=== PATIENT | male | born 1965 | race Caucasian/White ===

== ENCOUNTER 2018-01-19 12:49 | Observation (INO) ==
--- NOTE | 2018-01-19 13:07 | Emergency Department Note ---
ED Disposition Clinical Impression: Lumbar disc herniation Low back pain with sciatica Qualifiers: Chronicity: acute Back pain laterality: bilateral Sciatica laterality: sciatica of left side Qualified Code(s): M54.42 - Lumbago with sciatica, left side Disposition: Still a Patient Condition on Discharge: Fair Additional Instructions: Continue prednisone, 3 tablets a day for 2 more days, then 2 tablets a day for 3 days, then 1 tablet a day until prescription is gone. Additional instructions for BACK PAIN: Call Dr. Noland's office Monday for further instructions on appointment to see Dr. Menjivar. Return immediately if back pain becomes intolerable, or if fever, numbness or weakness of your legs, loss of control of your bowels or bladder. Additional instructions for CONTROLLED SUBSTANCES: You have been prescribed a medication that is a controlled substance. Controlled substances include pain medications known as opiates and sedative nerve medications known as benzodiazepines. Some common opiates include: Codeine (such as Tylenol #3) Hydrocodone (Vicodin, Lortab, Lorcet, [place]) Oxycodone (Percocet, Percodan, Oxycodone, Oxy IR) Some common benzodiazepines include: Diazepam (Valium) Lorazepam (Ativan) Alprazolam (Xanax) Clonazepam (Klonopin) Oxazepam (Serax) All of these controlled substances are highly addictive and frequently abused. Misuse can and frequently does lead to addiction as well as overdose and . Medication should be stored in a locked cabinet or other secure storage unit. Do not store the medication in a motor vehicle. Short term supplies, 3 days or less, are prescribed because of the highly addictive nature of the medication. Any of the controlled substance medication NOT taken should be disposed of properly and NOT SAVED. The recommended method of disposing of unused medications is: Place the medicines in a sealable plastic bag. If the medicine is a solid, crush it or add water to dissolve it. Add something undesirable (cat litter, coffee grounds, etc.) Dispose of sealed bag in household trash Do not flush or pour unused medicines down a sink or drain. Controlled substances should not be shared, given away or sold. Because of the addictive nature and frequent abuse, these medications are sometimes stolen. These medications should be kept in a safe place where they cannot be stolen. Do not keep them in your car or purse. Lost or stolen prescriptions for controlled substances WILL NOT BE REFILLED in this emergency department, regardless of whether a police report was filed. Prescriptions: Oxycodone HCl/Acetaminophen [Percocet 10-325 mg Tab] 1 tab PO Q6HP PRN #12 tab PRN Reason: Moderate To Severe Pain predniSONE [Prednisone 20mg Tab] 20 mg PO DAILY #10 tab Referrals: Leonel Pompa MD [Primary Care Provider] - - Critical Care Critical Care Time: No Attestation: On 01/19/18, the high probability of a clinically significant, sudden or life threatening deterioration of the following system(s) required my full and direct attention, intervention and personal management. The time I documented below is in addition to time spent performing reported procedures but includes the following listed in this critical care notation. Medical Decision Making - Dennys Inquiry Pt receiving controlled substance: Yes Dennys was queried for this patient: Yes Reference #:: [id number] Risks and benefits of using a controlled substance: were discussed with pt by me Comment: 1 rx for 20 lortab 7.5mg 04/24/17. Vital Signs: 01/19/18 12:51 01/19/18 13:23 01/19/18 14:16 Temperature 99.1 F Temperature Source Oral Pulse Rate [Left Radial] 74 78 72 Respiratory Rate 24 Blood Pressure [Right Arm] 154/91 140/77 138/71 Blood Pressure Mean [Right Arm] 112 98 93 Blood Pressure Source [Right Arm] Manual Cuff/ Auscultation Manual Cuff/ Auscultation Blood Pressure Position [Right Arm] Supine Sitting Sitting 02 Sat by Pulse Oximetry 98 99 98 Oxygen Delivery Method 01/19/18 15:30 Temperature Temperature Source Pulse Rate [Left Radial] 88 Respiratory Rate 24 Blood Pressure [Right Arm] 152/90 Blood Pressure Mean [Right Arm] 110 Blood Pressure Source [Right Arm] Blood Pressure Position [Right Arm] 02 Sat by Pulse Oximetry 98 Oxygen Delivery Method Room Air - Lab Data Lab Results 01/19/18 14:20: Urine Color Yellow, Urine Appearance Clear, Urine pH 7.0, Ur Specific [employer] 1.020, Urine Protein Negative, Urine Glucose (UA) Negative, Urine Ketones Negative, Urine Blood Negative, Urine Nitrate Negative, Urine Bilirubin Negative, Urine Urobilinogen 0.2, Ur Leukocyte Esterase Negative, Urine RBC Occasional, Urine WBC Occasional, Ur Squamous Epith Cells 3-5, Urine Bacteria Trace, Hyaline Casts 5-10, Urine Mucus 2+ Orders (Tests/Meds): ED MEDICATIONS Discontinued Medications Generic Name Dose Route Start Last Admin Trade Name Андрейq PRN Reason Stop Dose Admin Dexamethasone Sodium Phosphate 8 mg 01/19/18 13:17 01/19/18 13:55 Decadron 4mg/Ml 1ml Vial IV 01/19/18 13:18 8 mg ONCE ONE Administration Hydromorphone HCl 1 mg 01/19/18 13:17 01/19/18 13:25 Dilaudid 2mg/Ml Syringe IV 01/19/18 13:18 1 mg ONCE ONE Administration Hydromorphone HCl 1 mg 01/19/18 14:03 01/19/18 14:06 Dilaudid 2mg/Ml Syringe IV 01/19/18 14:04 1 mg ONCE ONE Administration Hydromorphone HCl 1 mg 01/19/18 15:28 01/19/18 15:30 Dilaudid 2mg/Ml Syringe IV 01/19/18 15:29 1 mg ONCE ONE Administration Ketorolac Tromethamine 60 mg 01/19/18 12:59 01/19/18 13:00 Toradol 60mg/2ml Vial IM 01/19/18 13:00 60 mg ONCE ONE Administration Ondansetron HCl 4 mg 01/19/18 14:01 01/19/18 14:02 Zofran 4mg/2ml Vial IV 01/19/18 14:02 4 mg ONCE ONE Administration - CT Data CT Scan: L-Spine Time Received: 14:[address] Reviewed: Yes: I have viewed the radiologist's interpretation Findings Narrative: IMPRESSION: 1. Suspect small left paracentral disc protrusion/herniation at L4-L5 with bulging disc and facet hypertrophic change and mild bilateral foraminal narrowing. 2. Degenerative disc disease with bulging disc and small right paracentral disc osteophyte complex at L5-S1 with bilateral foraminal narrowing. 3. Consider for further evaluation Dictated By: Keenan Stokes MD Signed By: <Electronically signed by Keenan Stokes MD in OV> 01/19/18 1430 - Physician Consults Time: 15:03 Reason -: Pt condition Comment/Response: Requests increasing prednisone to 60 mg per day for 2 more days, then 40 mg per day for 3 days, then 20 mg per day. He will try and arrange an appointment with Dr. Menjivar for epidural injection next week. Patient to call on Monday to their office. Analgesia. Additional Consult: Aletha Time: 15:32 Reason -: Admission Comment/Response: Agrees to admit the patient to the hospital. We discussed the patient's clinical information, including history, exam, laboratory and radiology results and ED course. Per hospital procedure, I will write temporary bridge inpatient orders on the patient. Specific orders requested by the admitting physician: Intravenous steroids and Toradol, Dilaudid. Consult Dr. Menjivar for inpatient evaluation. - Reevaluation(s) Time: 15:02 Reevaluation #1: Pain is 8/10. Patient appears comfortable. Discussed CT results diagnosis and treatment. Discussed disposition. Patient prefers to go home. Time: 15:26 Reevaluation #3: Patient unable to be discharged. Nurse attempted to get him up into a wheelchair and his pain once again became severe, moaning and restless. General Adult HPI - General Chief complaint: Back Pain/Injury Stated complaint: Pain Time Seen by Provider: 01/19/18 13:07 Mode of Arrival: EMS Limitations: No Limitations Description of Symptoms (Recalled from ER Triage Doc. by RN): to ed per squad with c/o lower back pain radiating down lt leg x 2 weeks getting worse seen by pcp yesterday given steroids with no relief. - History of Present Illness HPI narrative: Did some lifting and bowling 13 days ago and something pull in his back. The next day could not get out of bed. Has had severe low back pain across his lower back into his left hip and down his left leg all the way into the foot since then. Getting worse. Denies numbness. Denies loss of bowel or bladder control. Has been seeing a chiropractor for several days and getting adjustments on his left hip without improvement. Saw his primary care provider Monday 2 days ago and was prescribed steroids. Arrangements are being made for an MRI, but his states that she has been notified that provider does not expect that insurance will approve it. No history of significant back problems in the past. No history of disc problems. He had sciatica a few years ago. He has never had an MRI of his back. - Related Data Home Medications Medication Instructions Recorded Confirmed fluticasone 50 mcg/actuation nasal 50 mcg INTRANASAL ONCE 06/09/17 spray,suspension hydrochlorothiazide 25 mg tablet 25 mg PO ONCE tab 06/09/17 losartan 50 mg tablet 50 mg PO DAILY 30 Days #30 12/23/17 Cetirizine HCl [All Day Allergy] 10 mg PO ONCE 01/19/18 01/19/18 Ketotifen Fumarate [Zaditor] 1 drp OPHTHALMIC BID 01/19/18 01/19/18 Previous Rx's Medication Instructions Recorded [id number] 6.25 5 ml PO .Q6 PRN #240 ml 12/23/17 mg-15 mg-325 mg/15 mL oral liquid Oxycodone HCl/Acetaminophen 1 tab PO Q6HP PRN #12 tab 01/19/18 [Percocet 10-325 mg Tab] predniSONE [Prednisone 20mg 20 mg PO DAILY #10 tab 01/19/18 Tab] Allergies Allergy/AdvReac Type Severity Reaction Status Date / Time No Known Allergies Allergy Verified 12/23/17 12:08 [facility] History I have reviewed the patient's past medical history: Yes Medical History: Reports:: Hypertension Laterality Cases: Bilateral: Tonsillectomy Other Surgeries: Yes: Hernia Repair Comment: basal cell removed from nose - Social History Smoking Status: Current every day smoker Tobacco Type: cigarettes Alcohol Intake: current Alcohol Intake Frequency:: 3 or more drinks per day Substance Use Type: denies use - Psychiatric History Expresses thoughts of harming self/others: None Suicide Plan Description: No Plan Family Hx:: Heart Attack, Hypertension ROS Obtained: Yes Systems reviewed as appropriate & no additional complaints - Constitutional Constitutional: Denies fever(s) - Gastrointestinal Gastrointestingal: Denies: incontinent of stools - Genitourinary Male Genitourinary: Denies urinary incontinence - Musculoskeletal Musculoskeletal: Reports as per HPI, Reports back pain - Neurologic Neurologic: Denies numbness, Denies weakness Physical Exam - General General appearance: alert, in distress Comment: Appears to be in severe pain - Head Head exam: atraumatic, normocephalic - Eye Eye exam: Present: normal appearance, PERRL, EOMI - ENT ENT exam: Present: mucous membranes moist - Neck Neck exam: Present: normal inspection, full ROM - Chest Chest inspection: Present: normal inspection - Respiratory Respiratory exam: Absent: respiratory distress - Cardiovascular Cardiovascular exam: Present: regular rate - Abdominal Exam Abdominal exam: Present: soft - Extremities Exam Extremities exam: Present: normal inspection, full ROM - Neurological Exam Neurological exam: Present: alert, oriented X3. Absent: motor sensory deficit - Psychiatric Psychiatric exam: Present: normal affect - Skin Skin exam: Present: warm, dry
[2018-01-19 14:49] LABS: Microscopic, Urine URINE MICROSCOPIC (MICROSCOPIC)
[2018-01-19 14:51] LABS: Appearance,Urine CLEAR (Clear); Bilirubin,Urine Negative (Negative); Blood, Urine Negative (Negative); Color,Urine YELLOW (Yellow); Glucose,Urine (UA) Negative (Negative); Ketones,Urine Negative (Negative); Leukocyte Esterase,Urine Negative (Negative); Protein,Urine Negative (Negative); Urobilinogen,Urine 0.2 EU/dl (0.2)
[2018-01-19 15:00] LABS: Bacteria,Urine Trace /lpf; Mucus,Urine 2+ /lpf; RBC,Urine Occasional #/hpf (0-3); WBC,Urine Occasional #/hpf (0-3)
--- NOTE | 2018-01-19 16:09 | Pharmacy Consult Notes ---
[facility] Pharmacy VTE Monitoring - Patient Demographics Admission date: 01/19/18 Report Date: 01/19/18 Time: 16:09 Allergies/Adverse Reactions: Patient Allergies No Known Allergies Allergy (Verified 12/23/17 12:08) Height: 1.88 m Weight: 69.853 kg Patient Problems: Current Active Problems Lumbar disc herniation (Acute) Low back pain with sciatica (Acute) - VTE Risk Clinical Trial Participant: No - Prophylaxis VTE Prophylaxis Ordered?: Yes Types of VTE Prophylaxis: TEDS Knee High
--- NOTE | 2018-01-20 08:26 | History & Physical Report ---
*Admission Date: 01/19/18 *Chief complaint: Intractable back pain *History of present illness: 52-year-old white male, recently, 4 days ago, diagnosed with sciatica in the office, treated with steroids and NSAIDs, MRI pending, who had intractable, severe pain with the inability to walk with severe left leg pain and came to the emergency department in the early afternoon on the day of admission. Initially did well with some intravenous hydromorphone and was planning to be discharged but on the way out the door had increasingly severe intractable back pain was unable to walk out of the emergency department rooms. CT scan revealed evidence of L4/L5 disc herniation, consistent with his symptoms. He was admitted for further evaluation, pain management consultation and intravenous hydromorphone given his significant/intractable back pain and unresponsiveness to outpatient therapy. [facility] History Medical History: Reports:: Cancer, Hypertension Denies:: Diabetes Mellitus Type 1, Diabetes Mellitus Type 2, MRSA Other Medical History: Reports: Sinus Problems Laterality Cases: Bilateral: Tonsillectomy Other Surgeries: Yes: Hernia Repair Amputation: No Fractures: No - *Social History Educational Level: Completed High School Smoking Status: Former smoker Tobacco Type: cigarettes # Packs/Day (cigarettes): 1 Alcohol Intake: current Alcohol Intake Frequency:: 3 or more drinks per day Substance Use Type: denies use Occupational Status: employed Housing: house Household Members: spouse - Psychiatric History Expresses thoughts of harming self/others: None Suicide Plan Description: No Plan *Family Hx:: Unable to obtain, Heart Attack, Hypertension Review of Systems - Review of Systems Review of systems:: pertinent systems reviewed and negative unless documented below - Constitutional Denies anorexia, Denies body ache(s), Denies chills - Eyes Denies blurry vision - ENT Denies abnormal hearing, Denies bleeding gums - *Cardiovascular Denies chest pain, Denies excessive sweating, Denies shortness of breath - *Respiratory Denies change in phlegm color, Denies chest congestion - *Gastrointestinal Reports constipation, Denies abdominal pain, Denies belching, Denies change in bowel habits - *Genitourinary Reports difficulty urinating Comments: Difficulty starting urination stream - *Musculoskeletal Reports abnormal walking, Reports joint pain, Reports back pain, Reports limited joint movement - *Neurologic Denies numbness, Denies weakness Meds Home Medications Medication Instructions Recorded Confirmed Type losartan 50 mg tablet 50 mg PO DAILY 30 Days #30 12/23/17 01/19/18 History Diclofenac Sodium [Diclofenac 75mg 75 mg PO BID 01/19/18 01/19/18 History Tab] Ketotifen Fumarate [Zaditor] 1 drp OPHTHALMIC BID 01/19/18 01/19/18 History hydroCHLOROthiazide [HCTZ 25mg 25 mg PO DAILY 01/19/18 01/19/18 History tab] Allergies Allergy/AdvReac Type Severity Reaction Status Date / Time No Known Allergies Allergy Verified 12/23/17 12:08 Exam Vital signs and Labs for Last 24 Hours: Temp Pulse Resp BP Pulse Ox 98.6 F 63 18 128/76 100 01/20/18 07:50 01/20/18 07:50 01/20/18 07:50 01/20/18 07:50 01/20/18 08:00 Laboratory Results - last 24 hr 01/19/18 14:20: Urine Color Yellow, Urine Appearance Clear, Urine pH 7.0, Ur Specific [place] 1.020, Urine Protein Negative, Urine Glucose (UA) Negative, Urine Ketones Negative, Urine Blood Negative, Urine Nitrate Negative, Urine Bilirubin Negative, Urine Urobilinogen 0.2, Ur Leukocyte Esterase Negative, Urine RBC Occasional, Urine WBC Occasional, Ur Squamous Epith Cells 3-5, Urine Bacteria Trace, Hyaline Casts 5-10, Urine Mucus 2+ I & O for Last 24 hours: Intake & Output 01/17/18 01/18/18 01/19/18 01/20/18 11:59 11:59 11:59 11:59 Intake Total 600 / 600 Balance 600 / 600 Weight 154 lb Narrative: Patient's pleasant, talkative, appears older than his stated age. Oropharynx clear. ENT exam otherwise clear. Lungs have good air movement, some smoker's rhonchi. Heart rate regular. Abdomen soft Left leg has significant pain with straight leg raise at 30. Reflexes diminished in the left knee and ankle jerk. Significant disruption of strength with 3/5 with left hip flexion. Right side is unremarkable. No edema or clubbing. Good distal pulses. Cranial nerves are intact. No rashes noted. Assessment and Plan (1) Hypertension Current visit: Yes Status: Acute Category: Medical Code(s): I10 - Essential (primary) hypertension Blood pressure overnight has been acceptable. Continue angiotensin receptor derek. No change in plans at this point. Watch carefully given his pain and his opioid pain medicines. (2) Tobacco use disorder Current visit: Yes Status: Acute Category: Medical Code(s): F17.200 - Nicotine dependence, unspecified, uncomplicated Nicotine patch as needed if needed (3) Constipation Current visit: Yes Status: Acute Category: Medical Code(s): K59.00 - Constipation, unspecified Start senna and MiraLAX. Concerning for possible effects of disc disease. (4) Low back pain with sciatica Current visit: Yes Status: Acute Qualifiers: Chronicity: acute Back pain laterality: bilateral Sciatica laterality: sciatica of left side Qualified Code(s): M54.42 - Lumbago with sciatica, left side Category: Medical Code(s): M54.40 - Lumbago with sciatica, unspecified side Given failure of outpatient therapy, issues with urine stream initiation and constipation patient needs admission to hospital, he will need MRI scanning and needs pain management evaluation for possible epidural. Steroids and IV narcotics as noted (5) Lumbar disc herniation Current visit: Yes Status: Acute Category: Medical Code(s): M51.26 - Other intervertebral disc displacement, lumbar region
--- NOTE | 2018-01-21 08:45 | Progress Note ---
Internal Medicine - PN: Subj *Date: 01/21/18 *Time: 08:43 Interval history: Patient overall feels better, has decreased his utilization of intravenous Dilaudid. Has been able to get up and go to the bathroom. Continues to feel significantly weak on the left side. Occasionally with some severe pain. Exam Vital signs and Labs for Last 24 Hours: Temp Pulse Resp BP Pulse Ox 98.1 F 72 16 124/76 99 01/21/18 07:38 01/21/18 07:38 01/21/18 07:38 01/21/18 07:38 01/21/18 07:38 I & O for Last 24 hours: Intake & Output 01/18/18 01/19/18 01/20/18 01/21/18 11:59 11:59 11:59 11:59 Intake Total 600 / 600 1200 / 1200 Balance 600 / 600 1200 / 1200 Weight 154 lb Narrative: ENT exam clear, patient is pleasant and talkative. No evidence of tremors or orientation. Lungs with smoker's rhonchi, heart rate regular, abdomen soft, able to flex his knees well. He will remain slightly weak on the left side in regards to hip flexion. Straight leg raise significantly positive still at 45 on the left. Assessment and Plan (1) Hypertension Current visit: Yes Status: Acute Category: Medical Code(s): I10 - Essential (primary) hypertension (2) Tobacco use disorder Current visit: Yes Status: Acute Category: Medical Code(s): F17.200 - Nicotine dependence, unspecified, uncomplicated (3) Constipation Current visit: Yes Status: Acute Category: Medical Code(s): K59.00 - Constipation, unspecified (4) Low back pain with sciatica Current visit: Yes Status: Acute Qualifiers: Chronicity: acute Back pain laterality: bilateral Sciatica laterality: sciatica of left side Qualified Code(s): M54.42 - Lumbago with sciatica, left side Category: Medical Code(s): M54.40 - Lumbago with sciatica, unspecified side (5) Lumbar disc herniation Current visit: Yes Status: Acute Category: Medical Code(s): M51.26 - Other intervertebral disc displacement, lumbar region (6) Alcohol use Current visit: Yes Status: Acute Category: Social Hx Code(s): Z78.9 - Other specified health status Nursing reports patient drinks 6-10 beers nightly. I have discussed this with him. He states he has never had withdrawal symptoms. Has no shakiness. Will watch carefully. Otherwise plan remains the same for pain management service intervention tomorrow.
--- NOTE | 2018-01-21 09:37 | Discharge Summary ---
General - General Admission date:: 01/19/18 Discharge date: 01/21/18 HPI HPI: 52-year-old white male, recently, 4 days ago, diagnosed with sciatica in the office, treated with steroids and NSAIDs, MRI pending, who had intractable, severe pain with the inability to walk with severe left leg pain and came to the emergency department in the early afternoon on the day of admission. Initially did well with some intravenous hydromorphone and was planning to be discharged but on the way out the door had increasingly severe intractable back pain was unable to walk out of the emergency department rooms. CT scan revealed evidence of L4/L5 disc herniation, consistent with his symptoms. He was admitted for further evaluation, pain management consultation and intravenous hydromorphone given his significant/intractable back pain and unresponsiveness to outpatient therapy. Hospital Course Hospital Course: Patient was admitted and placed on intravenous Solu-Medrol and warfarin. Did well with this with good pain control while not moving, pain continue to be a problem over the next couple of days with any kind of movement or walking. Earlier this morning patient felt poorly but as he got up and walked around he felt improved and felt [facility]. Exam was noted on my note dated today. I contacted pain clinic. They will be able to work him in tomorrow for possible epidural injection. MRI scan will be later this week as we continue to work up the severe sciatic neuralgia. Objective Vital signs: Temp Pulse Resp BP Pulse Ox 98.1 F 72 16 124/76 99 01/21/18 07:38 01/21/18 07:38 01/21/18 07:38 01/21/18 07:38 01/21/18 07:38 Narrative: Please see exam from progress note earlier this morning DS: Diagnosis - Discharge Diagnosis (1) Hypertension Status: Chronic (2) Tobacco use disorder Status: Chronic (3) Constipation Status: Chronic (4) Low back pain with sciatica Status: Acute (5) Lumbar disc herniation Status: Acute (6) Alcohol use Status: Acute Discharge Plan - Patient Discharge Instructions ACTIVITY: Continue current activity DIET: continue same diet - Follow up Plan Follow up with: Petra Prater APRN [Advanced Practice Nurse] - 1 day Disposition: Home, Self-Prison Medications: Home Medications Medication Instructions Recorded Confirmed Type losartan 50 mg tablet 50 mg PO DAILY 30 Days #30 12/23/17 01/19/18 History Diclofenac Sodium [Diclofenac 75mg 75 mg PO BID 01/19/18 01/19/18 History Tab] Ketotifen Fumarate [Zaditor] 1 drp OPHTHALMIC BID 01/19/18 01/19/18 History hydroCHLOROthiazide [HCTZ 25mg 25 mg PO DAILY 01/19/18 01/19/18 History tab] Prescriptions/Medication Reconciliation: New predniSONE [Deltasone 20mg tablet] 20 mg PO BID 7 Days #14 tab Sennosides/Docusate Sodium [Senokot-S Tablet] 1 tab PO BIDP PRN #60 tab PRN Reason: Constipation Oxycodone HCl/Acetaminophen [Percocet 10-325 mg Tab] 1 tab PO Q6HP PRN # 12 tab PRN Reason: Moderate To Severe Pain Polyethylene Glycol 3350 [Miralax 17gm Packet] 17 gm PO DAILY #10 powd.pack Continue losartan 50 mg tablet 50 mg PO DAILY 30 Days #30 Ketotifen Fumarate [Zaditor] 1 drp OPHTHALMIC BID Diclofenac Sodium [Diclofenac 75mg Tab] 75 mg PO BID Discontinued hydroCHLOROthiazide [HCTZ 25mg tab] 25 mg PO DAILY
== END 2018-01-21 10:08 | disposition home or self-care (01) ==
LOC: 2ND 12:49 → ER 12:49 → 2ND 16:26
PROVIDERS: ADMIT Internal Medicine Adolescent Medicine; ATTEND Internal Medicine Adolescent Medicine
CPT/HCPCS: 72131; 81001; 96372; 96374; 96375; 96376; 99284; G0378; J2405

== ENCOUNTER → 2018-01-22 13:27 | Outpatient (POV) | payer BC, SELFPAY ==
[2018-01-22 13:34] VITALS: BP 129/88; PULSE 90; RESP 18; O2SAT 99
== END ==
PROVIDERS: Family Provider Nurse Practitioner Family; PCP Internal Medicine Adolescent Medicine; Visit Provider Clinical Nurse Specialist Family Health
DX: Z53.8 Procedure and treatment not carried out for other reasons (principal)

== ENCOUNTER → 2018-01-26 09:34 | Outpatient (POV) | payer BC, SELFPAY ==
[2018-01-26 10:29] VITALS: BP 143/82; PULSE 92; RESP 18; O2SAT 99; BMI 18.8
--- NOTE | 2018-01-26 12:06 | HMH.PMPROC ---
- Procedure Date: 01/26/18 Time: 12:06 Anesthesiologist:: Ambrose Menjivar MD Complications:: None Pre-procedure Diagnosis:: Degenerative disc disease of lumbar spine with bulging disc at L4-L5 with left leg radicular symptoms Post-procedure Diagnosis:: Same Indications for Procedure:: This patient is a pleasant 52-year-old white male who we are treating for low back pain with left hip and left leg radicular symptoms. CT scan does show degenerative changes with bulging disc at L4-L5 with left L4-L5 nerve impingement. It was thought that he may benefit from a lumbar epidural steroid injection at L4-L5 level. He did have a left SI joint injection left piriformis muscle injection which did not give him significant relief. We will do a lumbar epidural steroid injection at L4-L5 today. He does have pain in his back radiating all the way down his left leg to the foot. Procedure Details:: Lumbar epidural steroid injection under fluoroscopy Informed consent was obtained and the risk and benefits of the procedure was explained to the patient. The patient was taken to the procedure room. The patient was placed prone on the procedure table. The patient was prepped and draped in sterile fashion. C-arm fluoroscopy was used to view the lumbar spine. Skin and subcutaneous tissues were anesthetized using lidocaine. I placed an 18-gauge epidural needle and advanced into the L4-L5 interspace using fluoroscopic guidance and [id number] to air. After confirmation of needle placement in the epidural space with dye I injected 2 mL of lidocaine 1.5% with Depo-Medrol 80 mg. Patient tolerated the procedure well with no complications. Plan and Disposition:: We will follow-up with him in 2 weeks. Will reevaluate symptoms at that time.
== END ==
PROVIDERS: Family Provider Nurse Practitioner Family; PCP Internal Medicine Adolescent Medicine; Visit Provider Anesthesiology
DX: M51.16 Intervertebral disc disorders with radiculopathy, lumbar region (principal)
CPT/HCPCS: 62323; Q9966

== ENCOUNTER → 2018-02-19 11:31 | Outpatient (POV) | payer BC, SELFPAY ==
[2018-02-19 11:43] VITALS: BP 157/94; PULSE 104; RESP 18; O2SAT 98; BMI 20.1
--- NOTE | 2018-02-19 12:06 | P.CONS_ITS ---
[facility] Pain Management SOAP Note Subjective:: Patient is a pleasant 52-year-old white male who presents today after his second lumbar epidural steroid injection. Patient states he had 90% relief of his symptoms. Patient is doing extremely well. Patient would like to continue his set of 3 epidural steroid injections. Patient is not on any blood thinners. Patient is on anti-inflammatories. Patient is continuing to do home stretching program and is active. He rates his pain today a 5 out of 10. ROS General: no recent weight change, no fever, no sleep disturbances Respiratory: no cough, no shortness of air, no recurring pulmonary infections Cardiovascular/Peripheral Vascular: No chest pain, No palpitations, no edema, no shortness of breath. Gastrointestinal: no incontinence, normal bowel movements reported Genitourinary: no incontinence Musculoskeletal: Back pain, leg pain Psychiatric: normal mood/ affect Neurological: [denies weakness in extremities], [denies balance issues] Objective:: Physical Exam General: Alert and oriented x3, no acute distress, pleasant and cooperative, [on room air] Lungs: Resps E/U, Symmetrical chest expansion, Eyes: PERRL Musculoskeletal: Flexion and extension of lumbar spine somewhat guarded secondary to pain, deep tendon reflexes normal, strength in upper and lower extremities [5/5], slightly antalgic gait noted, positive straight leg raise test bilaterally at 30? Neurological: speech clear, range examiner equal, no gross sensory deficits Assessment:: Degenerative disc disease lumbar spine with lumbar radiculopathy Plan:: We will schedule his last L4-L5 lumbar epidural steroid injection. Patient is done well with these in the past receiving several weeks of relief. Patient is continuing a home stretching program. Patient's currently on anti- inflammatories. I will follow-up the patient after his last injection. This note was dictated using voice recognition software and may contain errors or omissions
== END ==
PROVIDERS: Family Provider Nurse Practitioner Family; PCP Internal Medicine Adolescent Medicine; Visit Provider Clinical Nurse Specialist Family Health
DX: M51.16 Intervertebral disc disorders with radiculopathy, lumbar region (principal)
CPT/HCPCS: 99213

== ENCOUNTER → 2018-05-21 09:45 | Outpatient (POV) | payer BC, SELFPAY ==
[2018-05-21 10:06] VITALS: BP 154/96; PULSE 81; RESP 18; O2SAT 99; BMI 19.0
--- NOTE | 2018-05-21 10:26 | HMH.PAINSOAP ---
[facility] Pain Management SOAP Note Subjective:: Is a pleasant 52-year-old white male who presents today for follow-up. Patient has had 2 lumbar epidural steroid injection and received 90% relief with them. Patient states that after a little over 2 months his pain has begun to return. Patient would like to continue with his gabapentin 300 mg 1 p.o. 3 times daily. Patient denies side effects to this medication. [facility] #[id number] reviewed and appropriate. Patient would also like to continue with his third epidural injection given the efficacy of this. Patient is continuing a home stretching program. Patient is on anti-inflammatories. Patient is not on any anticoagulation therapy. ROS General: no recent weight change, no fever, no sleep disturbances Respiratory: no cough, no shortness of air, no recurring pulmonary infections Cardiovascular/Peripheral Vascular: No chest pain, No palpitations, no edema, no shortness of breath. Gastrointestinal: no incontinence, normal bowel movements reported Genitourinary: no incontinence Musculoskeletal: Back pain, leg pain Psychiatric: normal mood/ affect, Neurological: [denies weakness in extremities], [denies balance issues] Objective:: Physical Exam General: Alert and oriented x3, no acute distress, pleasant and cooperative, [on room air] Lungs: Resps E/U, Symmetrical chest expansion, Eyes: PERRL Musculoskeletal: Flexion and extension of lumbar spine somewhat guarded secondary to pain, deep tendon reflexes normal, strength in upper and lower extremities [5/5], antalgic gait noted, positive straight leg raise test bilaterally at 30 degrees Neurological: speech clear, perinatal technician equal, no gross sensory deficits Assessment:: Degenerative disc disease lumbar spine with lumbar radiculopathy Plan:: We will continue the patient's gabapentin 300 mg 1 p.o. 3 times daily we will also call him in a 5-day dose of prednisone. We will schedule him an L4-L5 lumbar epidural steroid injection given the efficacy of these in the past. This note was dictated using voice recognition software and may contain errors or omissions
== END ==
PROVIDERS: PCP Internal Medicine Adolescent Medicine; Visit Provider Clinical Nurse Specialist Family Health
DX: M51.16 Intervertebral disc disorders with radiculopathy, lumbar region (principal)
CPT/HCPCS: 99213

== ENCOUNTER 2018-11-30 10:05 | Outpatient (POV) | payer BC, SELFPAY ==
[2018-11-30 10:40] VITALS: BP 153/98; PULSE 84; RESP 18; O2SAT 99; BMI 19.0
[2018-11-30 10:51] VITALS: BP 169/83; PULSE 75; RESP 18; O2SAT 98
[2018-11-30 10:53] VITALS: BP 165/82; PULSE 72; RESP 18; O2SAT 99
--- NOTE | 2018-11-30 10:59 | HMH.PMPROC ---
- Procedure Date: 11/30/18 Time: 10:59 Anesthesiologist:: Ambrose Menjivar MD Complications:: None Pre-procedure Diagnosis:: Degenerative disc disease of lumbar spine with lumbar radiculopathy symptoms Post-procedure Diagnosis:: Same Indications for Procedure:: This patient is a pleasant 53-year-old white male who we are treating for low back pain with lumbar radiculopathy symptoms. His last injection was back in August. He does very well with these for approximately 3 months. His pain is now returned in his low back and down his left leg. We will do repeat lumbar epidural steroid injection today to see if this will help with his pain symptoms. Procedure Details:: Lumbar epidural steroid injection under fluoroscopy Informed consent was obtained and the risk and benefits of the procedure was explained to the patient. The patient was taken to the procedure room. The patient was placed prone on the procedure table. The patient was prepped and draped in sterile fashion. C-arm fluoroscopy was used to view the lumbar spine. Skin and subcutaneous tissues were anesthetized using lidocaine. I placed an 18-gauge epidural needle and advanced into the L4-L5 interspace using fluoroscopic guidance and [id number] to air. After confirmation of needle placement in the epidural space with dye I injected 2 mL of lidocaine 1.5% with Depo-Medrol 80 mg. Patient tolerated the procedure well with no complications. Plan and Disposition:: We will follow-up with him in 2 weeks. Will reevaluate symptoms at that time.
[2018-11-30 11:05] VITALS: BP 159/92; PULSE 91; RESP 18; O2SAT 99
== END 2018-11-30 11:05 | disposition home or self-care (01) ==
LOC: SC.PAIN 10:07 → SDC 10:42 → SC.PAIN 10:57
PROVIDERS: PCP Internal Medicine Adolescent Medicine; Visit Provider Anesthesiology
DX: M51.16 Intervertebral disc disorders with radiculopathy, lumbar region (principal)
CPT/HCPCS: 62323; J1040; Q9966

== ENCOUNTER → 2018-12-31 15:05 | Outpatient (POV) | payer BC, SELFPAY ==
[2018-12-31 15:21] VITALS: BP 119/80; PULSE 94; RESP 18; O2SAT 99; BMI 19.2
--- NOTE | 2018-12-31 15:27 | HMH.PAINSOAP ---
[facility] Pain Management SOAP Note Subjective:: Patient is a pleasant 53-year-old white male who we are treating for low back pain. He rates his pain a 3 out of 10 today after epidural steroid injection. Patient is interested in potential medial branch blocks and rhizotomy. Patient has very focal pain that is worsened with the twisting motion. Patient's not on any anticoagulation therapy. He is continuing a home stretching program and anti-inflammatories. He does have a positive Kemps test and facet loading lumbar spine bilaterally. ROS General: no recent weight change, no fever, no sleep disturbances Respiratory: no cough, no shortness of air, no recurring pulmonary infections Cardiovascular/Peripheral Vascular: No chest pain, No palpitations, no edema, no shortness of breath. Gastrointestinal: no incontinence, normal bowel movements reported Genitourinary: no incontinence Musculoskeletal: Back pain Psychiatric: normal mood/ affect Neurological: [denies weakness in extremities], [denies balance issues] Objective:: Physical Exam General: Alert and oriented x3, no acute distress, pleasant and cooperative, [on room air] Lungs: Resps E/U, Symmetrical chest expansion, Eyes: PERRL Musculoskeletal: Flexion and extension of lumbar spine somewhat guarded secondary to pain, deep tendon reflexes normal, strength in upper and lower extremities [5/5], slightly antalgic gait noted Neurological: speech clear, monomer recovery supervisor equal, no gross sensory deficits Assessment:: Degenerative disc disease lumbar spine with lumbar facet arthropathy Plan:: We will schedule an L4-L5 L5-S1 bilateral lumbar medial branch block/facet joint injection. I do believe he potentially may be a rhizotomy candidate. He understands that this injection is diagnostic in nature. I will follow-up with the patient after this reassess his symptoms at that time. Dr. Menjivar has reviewed this note and agrees with this plan of care. This note was dictated using voice recognition software and may contain errors or omissions Pain Management Hx Components *Have you ever received a pneumonia vaccine?: Yes *Have you received a flu vaccine this season?: Yes - *Social History *Occupational Status:: other *Travel in the last 8 weeks: None
== END ==
PROVIDERS: PCP Internal Medicine Adolescent Medicine; Visit Provider Clinical Nurse Specialist Family Health
DX: M51.36 Other intervertebral disc degeneration, lumbar region (principal); M54.06 Panniculitis affecting regions of neck and back, lumbar region
CPT/HCPCS: 99212

== ENCOUNTER → 2019-07-29 12:47 | Outpatient (POV) | payer BC, SELFPAY ==
[2019-07-29 13:10] VITALS: BP 164/94; PULSE 93; RESP 18; O2SAT 99; BMI 19.2
--- NOTE | 2019-07-29 13:13 | HMH.PAINSOAP ---
[facility] Pain Management SOAP Note Subjective:: She is a pleasant 53-year-old white male who we are treating for low back pain with lumbar spondylosis and facet arthropathy. Rates his pain today 7 out of 10. He had 80% relief of his symptomology with his facet joint injections/medial branch for 3 months. Patient has had 2 rounds of medial branch blocks at the L4-L5 L5-S1 bilateral levels. Patient is got extremely good relief with this. He is a RFA/neurotomy candidate. We will move forward with an RFA. Patient is tried and failed physical therapy, anti-inflammatories, medication. He is continuing to work. Patient has a very focal facet agenic pain pattern. ROS General: no recent weight change, no fever, no sleep disturbances Respiratory: no cough, no shortness of air, no recurring pulmonary infections Cardiovascular/Peripheral Vascular: No chest pain, No palpitations, no edema, no shortness of breath. Gastrointestinal: no new onset incontinence, normal bowel movements reported Genitourinary: no new onset incontinence Musculoskeletal: Back pain Psychiatric: normal mood/ affect Neurological: [denies new onset weakness in extremities], [denies new onset balance issues] Objective:: Physical Exam General: Alert and oriented x3, no acute distress, pleasant and cooperative, [on room air] Lungs: Resps E/U, Symmetrical chest expansion, Eyes: PERRL Musculoskeletal: Flexion and extension of lumbar spine somewhat guarded secondary to pain, deep tendon reflexes normal, strength in upper and lower extremities [5/5], positive Kemps test positive facet loading lumbar spine, slightly antalgic gait noted Neurological: speech clear, project builder equal, no gross sensory deficits Assessment:: Degenerative disc disease lumbar spine with spondylosis and facet arthropathy Plan:: We will plan an L4-L5 L5-S1 bilateral RFA. We will start with the left side and then in 2 weeks to the right side. Patient's not on any anticoagulation therapy. He is continuing his anti-inflammatories and home stretching program. I will follow-up with him after his RFA and reassess his symptoms at that time. Dr. Menjivar has reviewed this note and agrees with this plan of care. This note was dictated using voice recognition software and may contain errors or omissions [facility] History I have reviewed the patient's past medical history: Yes Medical History: Reports:: Cancer, Hypertension Denies:: Diabetes Mellitus Type 1, Diabetes Mellitus Type 2, MRSA, Seizures *Have you ever received a pneumonia vaccine?: Yes *Have you received a flu vaccine this season?: Yes Other Medical History: Reports: Sinus Problems Laterality Cases: Bilateral: Tonsillectomy Other Surgeries: Yes: Hernia Repair Amputation: No Fractures: No - *Social History Smoking Status: Current every day smoker Tobacco Type: cigarettes # Packs/Day (cigarettes): 2 Alcohol Intake: never Alcohol Intake Frequency:: 3 or more drinks per day Substance Use Type: denies use *Occupational Status:: other Housing: house Household Members: spouse *Travel in the last 8 weeks: None Family Hx:: Unable to obtain, Heart Attack, Hypertension
== END ==
PROVIDERS: PCP Internal Medicine Adolescent Medicine; Visit Provider Clinical Nurse Specialist Family Health
DX: M51.36 Other intervertebral disc degeneration, lumbar region (principal); M47.816 Spondylosis without myelopathy or radiculopathy, lumbar region; M54.06 Panniculitis affecting regions of neck and back, lumbar region
CPT/HCPCS: 99212

== ENCOUNTER 2019-09-20 07:57 | Day surgery (SDC) | payer BC, SELFPAY ==
[2019-09-20 08:05] VITALS: BP 140/86; PULSE 85; RESP 18; TEMP 37; O2SAT 95; BMI 19.0
[2019-09-20 08:36] VITALS: BP 145/94; PULSE 96; RESP 18; TEMP 36.6
[2019-09-20 08:37] VITALS: BP 150/92; PULSE 95; RESP 18; TEMP 36.7; O2SAT 99
--- NOTE | 2019-09-20 08:49 | HMH.PMPROC ---
- Procedure Date: 09/20/19 Time: 08:49 Anesthesiologist:: Ambrose Menjivar MD Complications:: None Pre-procedure Diagnosis:: Degenerative disc disease of lumbar spine with lumbar spondylosis and facet arthropathy of lumbar spine Post-procedure Diagnosis:: Same Indications for Procedure:: This patient is a pleasant 53-year-old white male who we are treating for low back pain with lumbar spondylosis and facet arthropathy of lumbar spine. He had 80% relief of his symptoms with facet joint injection/medial branch blocks. He did very well for several days. His pain is now starting to return. Since he had successful medial branch blocks we will plan on radiofrequency ablation to the facet joints of L4-5 and L5-S1. We will start with the left side today followed by the right side in 2 weeks. He is having increasing pain in his low back. This is affecting activities of daily living and his function. Also affecting his work. Because of his increased pain we will do this procedure today to keep him out of the emergency room and off oral opioids. Procedure Details:: Lumbar RFA informed consent was obtained and the risk and benefits of the procedure was explained to the patient. Patient was placed prone on the procedure table. The patient was prepped and draped in sterile fashion. C-arm fluoroscopy was used to view the lumbar spine. The skin and subcutaneous tissues were anesthetized using lidocaine. I placed 20-gauge RF needles into the facet joints of L4-5 and L5-S1 levels on the left side. We underwent sensory stimulation. There is good sensory stimulation at 0.8 V. We underwent motor stimulation. There is no motor stimulation at 2 V. We then anesthetized these levels with lidocaine and Depo-Medrol. I used a total of 40 mg Depo-Medrol for both levels. I then burned both levels of L4-5 and L5-S1 facet joint/medial branches on the left side for 4 minutes at 80 ?C. Patient tolerated the procedure well with no complication. Plan and Disposition:: We will follow-up with her in 2 weeks. Will reevaluate his symptoms at that time. We will plan on radiofrequency ablation to the facet joint/medial branches of L4-5 and L5-S1 on the right side.
[2019-09-20 09:24] VITALS: BP 139/76; PULSE 79; RESP 18; O2SAT 98
== END 2019-09-20 08:50 | disposition home or self-care (01) ==
LOC: SC.PAINP 07:58
PROVIDERS: PCP Internal Medicine Adolescent Medicine; Visit Provider Anesthesiology
DX: M51.36 Other intervertebral disc degeneration, lumbar region (principal); M54.06 Panniculitis affecting regions of neck and back, lumbar region; M47.816 Spondylosis without myelopathy or radiculopathy, lumbar region
CPT/HCPCS: 64635; 64636; J1040

== ENCOUNTER 2019-10-18 13:52 | Day surgery (SDC) | payer BC, SELFPAY ==
[2019-10-18 14:16] VITALS: BP 132/85; PULSE 94; RESP 18; TEMP 37.2; O2SAT 100; BMI 19.2
[2019-10-18 14:35] VITALS: BP 135/85; PULSE 85; RESP 18; O2SAT 98
[2019-10-18 14:36] VITALS: BP 140/78; PULSE 88; RESP 18; TEMP 36.6; O2SAT 99
--- NOTE | 2019-10-18 14:51 | P.PCN_ITS ---
- Procedure Date: 10/18/19 Time: 14:51 Anesthesiologist:: Ambrose Menjivar MD Complications:: None Pre-procedure Diagnosis:: Degenerative disc disease of lumbar spine with lumbar facet arthropathy and lumbar spondylosis Post-procedure Diagnosis:: Same Indications for Procedure:: This patient is a pleasant 53-year-old white male who we are treating for low back pain with lumbar spondylosis and facet arthropathy lumbar spine. He has done well with his previous radiofrequency ablation of the facet joints of L4-5 and L5-S1 on the left side. He presents for radiofrequency ablation of the f acet joint of L4-5 and L5-S1 on the right side today. Procedure Details:: Lumbar RFA informed consent was obtained and the risk and benefits of the procedure was explained to the patient. Patient was placed prone on the procedure table. The patient was prepped and draped in sterile fashion. C-arm fluoroscopy was used to view the lumbar spine. The skin and subcutaneous tissues were anesthetized using lidocaine. I placed 20-gauge RF needles into the facet joints of 4 5 and L5-S1 levels on the right side. We underwent sensory stimulation. There is good sensory stimulation at 0.8 V. We underwent motor stimulation. There is no motor stimulation at 2 V. We then anesthetized these levels with lidocaine and Depo-Medrol. I used a total of 40 mg Depo-Medrol for both levels. I then burned both levels of 4 5 and L5-S1 facet joint on the right side for 4 minutes at 80 ?C. Patient tolerated the procedure well with no complication. Plan and Disposition:: We will follow-up with him in 2 weeks. Will reevaluate symptoms at that time.
[2019-10-18 14:58] VITALS: BP 144/85; PULSE 77; RESP 20; O2SAT 100
== END 2019-10-18 14:59 | disposition home or self-care (01) ==
LOC: SC.PAINP 13:53
PROVIDERS: PCP Internal Medicine Adolescent Medicine; Visit Provider Anesthesiology
DX: M51.36 Other intervertebral disc degeneration, lumbar region (principal); M47.816 Spondylosis without myelopathy or radiculopathy, lumbar region; M12.88 Other specific arthropathies, not elsewhere classified, other specified site; I10 Essential (primary) hypertension; Z72.0 Tobacco use; Z90.89 Acquired absence of other organs
CPT/HCPCS: 64635; 64636; J1040

== ENCOUNTER → 2020-05-28 09:38 | Outpatient (CLI) | payer BC, SELFPAY | PROVIDERS: PCP Internal Medicine Adolescent Medicine; Visit Provider Internal Medicine Adolescent Medicine | DX: Z87.891 Personal history of nicotine dependence (principal); Z12.2 Encounter for screening for malignant neoplasm of respiratory organs ==

== ENCOUNTER 2022-10-01 10:37 | Emergency (ER) | payer OTHER, SELFPAY ==
[2022-10-01 10:54] VITALS: BP 110/74; PULSE 96; RESP 20; TEMP 37.1; O2SAT 97; BMI 19.2
--- NOTE | 2022-10-01 11:28 | EXP.UTC ---
Discharge Plan Disposition Patient Disposition: Home, Self-Care Condition: Good Prescriptions Prescriptions: New [id number]-[id number] [Bromfed DM] 2-30-10 mg/5 mL syrup 10 ml PO Q6H PRN (Reason: cold symptoms) Qty: 200 0RF No Action losartan 50 mg tablet 50 mg PO DAILY 30 Days Qty: 30 hydrochlorothiazide 12.5 MG tablet 12.5 mg PO DAILY Referrals Follow up/Referrals: Leonel Pompa MD [Primary Care Provider] - See instructions Clinical Impressions Clinical Impression: Acute upper respiratory infection Instructions Patient Instructions: DI for Viral Upper Respiratory Infection -- Adult Discharge ED Provider: Sunita Torres [facility] General Stated complaint: Eye drainage, congestion, sinus pain Mode of Arrival: Ambulatory Source of Information: Patient Limitations: No Limitations Time Seen by Provider: 10/01/22 11:28 Description of Symptoms (Recalled from Triage Doc. by RN): pt c/o an allergy flair up. pt states he has had L eye drainage, sinus pressure and congestion. HEENT Symptoms (Recalled from RN notes): Yes Resp Symptoms (Recalled from RN notes): No Skin Symptoms (Recalled from RN notes): No MS Symptoms (Recalled from RN notes): No Functional Status (Recalled from RN notes): wnl History of Present Illness Provider Complaint: Pt states that he has been traveling for the past week and has been getting allergy issues everywhere he goes. He reports that he has been taking Claritan, but this has not helped much. He states that he has a lot of clear drainage from his left eye, clear sinus drainage, and a cough. Related Data Home Medications Medication Instructions Recorded Confirmed losartan 50 mg tablet 50 mg PO DAILY Hypertension 30 12/23/10/18/19 days ##30 hydrochlorothiazide 12.5 mg tablet 12.5 mg PO DAILY blood pressure 01/11/19 10/18/19 Previous Rx's Medication Instructions Recorded [id number]-xwljsmjlitlddnu-[id number] 10 ml PO Q6H PRN cold symptoms 10/01/22 2 mg-30 mg-10 mg/5 mL oral syrup #200 mL (Bromfed DM) Allergies Allergy/AdvReac Type Severity Reaction Status Date / Time No Known Allergies Allergy Verified 10/01/22 10:58 Worker's Comp Is this a Worker's Comp case?: No [facility] Disclaimer: The information contained in this section may have been updated after the patient was seen, as this information can be updated by other users. Social History Smoking Status: Current every day smoker tobacco type: cigarettes packs per day: 1 second hand exposure: Yes alcohol intake: current counseling provided: provider counseling substance use type: denies use current occupational status: employed Travel in the last 8 weeks: None household members: spouse housing: house current occupational exposures/hazards: No caffeine: Yes ROS Obtained: Yes All systems reviewed & no additional complaints except as documented Constitutional Constitutional: Reports system reviewed and no additional complaints, except as documented Eyes Eyes: Reports eye discharge, Reports irritation and Reports itchy eyes Comments: clear drainage from eye ENT Ears, Nose, Mouth, and Throat: Reports system reviewed and no additional complaints, except as documented, Reports nasal discharge and Reports sinus pressure Cardiovascular Cardiovascular: Reports system reviewed and no additional complaints, except as documented Respiratory Respiratory: Reports system reviewed and no additional complaints, except as documented and Reports non-productive cough Gastrointestinal Gastrointestingal: Reports system reviewed and no additional complaints, except as documented Genitourinary Male Genitourinary: Reports system reviewed and no additional complaints, except as documented Musculoskeletal Musculoskeletal: Reports system reviewed and no additional complaints, except as documented Integumentary/Breasts Skin/Breast: Reports system reviewed and no additional compl
[2022-10-01 11:41] VITALS: BP 110/74; PULSE 96; RESP 20; TEMP 37.1
== END 2022-10-01 11:44 | disposition home or self-care (01) ==
PROVIDERS: Emergency Provider Nurse Practitioner Family; PCP Internal Medicine Adolescent Medicine
DX: J06.9 Acute upper respiratory infection, unspecified (principal); R05.9 Cough, unspecified; F17.210 Nicotine dependence, cigarettes, uncomplicated; I10 Essential (primary) hypertension
CPT/HCPCS: 99204; 99212; G0463

== ENCOUNTER → 2023-05-04 10:55 | Outpatient (CLI) | payer OTHER, SELFPAY ==
[2023-05-04 11:01] LABS: Adenovirus F 40/41, stool Not Detected (NotDetected); Astrovirus Not Detected (NotDetected); Campylobacter Not Detected (NotDetected); Cryptosporidium Not Detected (NotDetected); Cyclospora Cayetanesis Not Detected (NotDetected); Entamoeba histolytica Not Detected (NotDetected); Enteroaggregative E coli Not Detected (NotDetected); Enteropathogenic E coli Not Detected (NotDetected); Enterotoxigenic E coli Not Detected (NotDetected); Giardia lamblia Not Detected (NotDetected); Norovirus Not Detected (NotDetected); Plesimonas Shigalloides, PCR Not Detected (NotDetected); Rotavirus A Not Detected (NotDetected); Salmonella, PCR Not Detected (NotDetected); Shiga-like toxin E coli Not Detected (NotDetected); Shigella Enterovasive E coli Not Detected (NotDetected); Vibrio Cholerae Not Detected (NotDetected); Vibrio, PCR Not Detected (NotDetected); Yersinia Entercolitica, PCR Not Detected (NotDetected)
[2023-05-09 09:00] LABS: Clostridium Difficile A/B, PCR Detected (NotDetected); Sapovirus Not Detected (NotDetected)
== END ==
LOC: LAB 10:57
PROVIDERS: PCP Internal Medicine Adolescent Medicine; Visit Provider Nurse Practitioner Family
DX: R19.7 Diarrhea, unspecified (principal); A04.72 Enterocolitis due to Clostridium difficile, not specified as recurrent
CPT/HCPCS: 87507

== ENCOUNTER 2024-07-01 18:34 | Emergency (ER) | payer OTHER, SELFPAY ==
[2024-07-01] VITALS (7 sets, daily range): BP systolic 107–132; BP diastolic 67–82; PULSE 75–129; RESP 18–22; TEMP 36.9–39.5; O2SAT 90–98; BMI 21.1
--- NOTE | 2024-07-01 18:36 | ED_ITS ---
<Statement entered by Jared Vazquez MD - 07/01/24 22:52> I was consulted by the CAROLYN, and we discussed the complexity of the problems being addressed. I approved the treatment and management plan for this patient's care in the emergency department, thus performing a substantive portion of the medical decision making. Jared Vazquez MD, AIDAN, FACEP Discharge Plan Disposition Patient Disposition: Home, Self-Care Condition: Good Prescriptions Prescriptions: No Action losartan 50 mg tablet 50 mg PO DAILY 30 Days Qty: 30 amlodipine 5 mg tablet 5 mg PO DAILY Patient Comments: TAKE 1 TABLET BY MOUTH ONCE DAILY Referrals Follow up/Referrals: Leonel Pompa MD [Primary Care Provider] - See instructions Activity Restrictions/Add. Instructions Additional Instructions/Restrictions: Continue taking Tylenol alternating with Motrin to control your constitutional symptoms. Follow-up with your PCP for any new or worsening signs or symptoms or return to the ER as needed. Clinical Impressions Clinical Impression: Influenza Print Language Print Language: Serbian Discharge ED Provider: Jared Vazquez General Adult HPI General Chief complaint: Upper Respiratory Infection Stated complaint: Fever 103.2,cough Time Seen by Provider: 07/01/24 18:36 History of Present Illness HPI narrative: Patient presents for 3 days of fever and nonproductive cough. Patient states she began having fever and cough on Monday. He has tried multiple [id number] medications and feels no better. He took ibuprofen around 6:00. He denies chest pain shortness of breath hemoptysis hematochezia melena hematemesis hematuria. Related Data Home Medications ?Medication ?Instructions ?Recorded ?Confirmed losartan 50 mg tablet 50 mg PO DAILY Hypertension 30 12/23/17 07/01/24 days ##30 amlodipine 5 mg tablet 5 mg PO DAILY 07/01/24 07/01/24 Allergies Allergy/AdvReac Type Severity Reaction Status Date / Time No Known Allergies Allergy Verified 10/01/22 10:58 [facility] Disclaimer: The information contained in this section may have been updated after the patient was seen, as this information can be updated by other users. Social History Smoking Status: Current every day smoker tobacco type: cigarettes packs per day: 1 second hand exposure: Yes alcohol intake: current alcohol intake frequency: a few times a month counseling provided: provider counseling substance use type: denies use current occupational status: employed Travel in the last 8 weeks: None household members: spouse housing: house current occupational exposures/hazards: No caffeine: Yes Have you lived/traveled outside [place] in past 30 days?: No Contact w/someone who lives/traveled outside [place] past 30 days?: No Exposure to someone with infectious disease in past 14 days?: No Do you have a fever (greater than 100.4 F or 38 C)?: Yes Have you tested positive for COVID-19: No Exposed to someone with COVID-19 in past 14 days?: No Do you have a sore throat?: No Do you have a cough?: Yes Do you have any weakness?: No Do you have any diarrhea?: No Are you experiencing any unusual bleeding?: No Do you have any muscle aches/pain?: No Do you have any abdominal pain?: No Are you experiencing loss of taste or smell?: No Other Medical History Have you received the Flu Vaccine for this season: No Have you received the Pneumonia Vaccine: No ROS Obtained: Yes Systems reviewed as appropriate & no additional complaints except as documented Physical Exam General General appearance: alert and in no apparent distress Respiratory Respiratory exam: Present normal lung sounds bilaterally Cardiovascular Cardiovascular exam: Present tachycardia Neurological Exam Neurological exam: Present alert and oriented X3 Medical Decision Making Medical Records Medical records reviewed: Yes I reviewed the patient's medical records. Screening: Per USPSTF and CDC recommendations, given the prevalence of disease in our region, it is our hospital?s policy to screen for HIV and viral Hepatitis for all patients aged 18 and over and those with ongoing risk factors. Dennys Inquiry Pt receiving controlled substance: No Vital Signs: 07/01/24 18:36 07/01/24 18:44 07/01/24 19:00 Temperature 103.1 F H Temperature Source Oral Pulse Rate 129 H Pulse Rate [Radial] 120 H Respiratory Rate 18 18 Blood Pressure 132/82 Blood Pressure [Right Arm] 132/82 Blood Pressure Mean [Right Arm] 98 Blood Pressure Source [Right Arm] Automatic Cuff Blood Pressure Position [Right Arm] Sitting 02 Sat by Pulse Oximetry 98 94 L 98 Oxygen Delivery Method Room Air Room Air 07/01/24 19:30 07/01/24 20:00 Temperature Temperature Source Pulse Rate 75 80 Pulse Rate [Radial] Respiratory Rate Blood Pressure 117/72 114/68 Blood Pressure [Right Arm] Blood Pressure Mean [Right Arm] Blood Pressure Source [Right Arm] Blood Pressure Position [Right Arm] 02 Sat by Pulse Oximetry 90 L 90 L Oxygen Delivery Method Room Air Room Air Lab Data Lab results reviewed: Yes I reviewed the patient's lab results. Lab Results 07/01/24 18:47: SARS-CoV-2 (PCR) Not detected, Influenza A Untype (PCR) Detected A, Influenza Type B (PCR) Not detected 07/01/24 18:58: WBC 6.1, RBC 4.68, Hgb 15.6, Hct 44.0, MCV 94.0, MCH 33.3 H, M CHC 35.5 H, RDW 11.9, Plt Count 266, MPV 9.7, Neut % (Auto) 72.3, Lymph % (Auto) 16.3, [place] % (Auto) 9.0, Eos % (Auto) 1.1, Baso % (Auto) 0.8, Neut # (Auto) 4.4, Lymph # (Auto) 1.0, [place] # (Auto) 0.6, Eos # (Auto) 0.1, Baso # (Auto) 0.1, S odium 132 L, Potassium 3.9, Chloride 98, Carbon Dioxide 26, Anion Gap 11.9, BUN 9, Creatinine 0.80, Estimated Creat Clear 102, Estimated GFR 99, Est GFR ( Amer) 120, Glucose 167 H, Calcium 8.9, Total Bilirubin 0.3, AST 76 H, ALT 54, Alkaline Phosphatase 75, Total Protein 6.7, Albumin 4.5, Globulin 2.2, A lbumin/Globulin Ratio 2.0 H 07/01/24 18:58 07/01/24 18:58 Orders (Tests/Meds): ED MEDICATIONS Discontinued Medications Generic Name Dose Route Start Last Admin Trade Name Freq PRN Reason Stop Dose Admin Acetaminophen 1,000 mg 07/01/24 18:46 07/01/24 19:09 Acetaminophen 500mg Tab PO 07/01/24 18:47 1,000 mg ONCE ONE Administration Lactated Ringer's 1,000 mls @ 999 mls/hr 07/01/24 18:46 07/01/24 19:09 Lactated Ringer's 1000 Ml Bag IV 07/01/24 19:46 999 mls/hr .Q1H1M ONE Administration Ketorolac Tromethamine 15 mg 07/01/24 18:46 07/01/24 19:09 Ketorolac 30mg/Ml Vial IV 07/01/24 18:47 15 mg ONCE ONE Administration ORDERS Category Date Time Status Chest XR 2 view (NOT portable) [XR chest 2V] Stat Exams 07/01/24 18:47 Completed CBC w/Auto Diff [Complete Blood Count Auto Diff] Stat Lab 07/01/24 18:58 Completed CMP [Comprehensive Metabolic Panel] Stat Lab 07/01/24 18:58 Completed HIV Combo Stat Lab 07/01/24 18:55 Received Hepatitis C Ab Qual. W/ RFX Stat Lab 07/01/24 18:55 Received Rapid PCR Covid and Flu A/B Stat Lab 07/01/24 18:47 Completed Medical Decision Narrative: In summary patient is a 58-year-old male who presents to the emergency department for evaluation of cough and fever for 3 days. Patient is normotensive initially at 132/82 however he is tachycardic in the 120s with sinus tachycardia on bedside monitor breathing 18 times a minute satting at 98% on room air upon arrival, with a temperature of 103.1 on arrival. Physical exam is remarkable for clear breath sounds heard to the bases without adventitious sounds, no increased work of breathing.. Differential diagnosis includes viral or bacterial respiratory tract infection. Initial workup will be conducted with respiratory swabs plain film chest x-ray hematologic labs.. Initial interventions include crystalloid bolus Tylenol Toradol. Initial workup reviewed by me shows that his hematologic labs are nonactionable my informal interpretation of his plain film chest x-ray shows multifocal groundglass opacities suggestive of viral infection and his respiratory swab was positive for influenza A. Upon repeat evaluation patient reports dramatic improvement after initial intervention and he now has a heart rate of 80. Given this patient is appropriate for discharge with instruction to continue taking Tylenol alternating with Motrin for the next couple of days and strict return precautions. Critical Care Critical Care Time Critical Care Time: No
--- NOTE | 2024-07-01 18:47 | XR_ITS ---
PROCEDURE INFORMATION: Exam: XR Chest Exam date and time: 07/01/2024 6:47 PM Age: 58 years old Clinical indication: Cough; Additional info: Fever and cough TECHNIQUE: Imaging protocol: Radiologic exam of the chest. Views: 2 views. COMPARISON: CT LUNG SCREENING 05/28/2020 9:59 AM FINDINGS: Lungs: Central opacities with peribronchial cuffing, seen to advantage on the lateral chest radiograph. Pleural spaces: Unremarkable. No pleural effusion. No pneumothorax. Heart/Mediastinum: Unremarkable. No cardiomegaly. Bones/joints: Unremarkable. IMPRESSION: Combination of findings that suggests viral process versus reactive airways without evidence of consolidation.
[2024-07-01 18:51] LABS: Coronavirus 19, PCR Not Detected (NotDetected); Influenza B, PCR Not Detected (NotDetected)
--- NOTE | 2024-07-01 18:57 | PC.NURSE ---
PT TO RADIOLOGY
[2024-07-01] MEDS: KETOROLAC 30MG/ML VIAL 15 MG IV (19:09)
[2024-07-01] MEDS: ACETAMINOPHEN 500MG TAB 1000 MG PO (19:09)
[2024-07-01] MEDS: LACTATED RINGERS 1000ML 1,000 ML 999 ML IV (19:09)
[2024-07-01 19:25] LABS: Basophils # 0.1 K/mm3 (0-0.2); Basophils % 0.8 % (0.1-2.0); Eosinophils # 0.1 K/mm3 (0.0-0.4); Eosinophils % 1.1 % (0.1-12.0); Hemoglobin 15.6 g/dL (14.1-18.0); Lymphocytes % 16.3 % (10-50); Mean Corpuscular HGB Conc 35.5 g/dL (31.8-35.4); Mean Corpuscular Hemoglobin 33.3 pg (27.0-31.2); Mean Platelet Volume 9.7 fl (7.4-10.4); Monocytes # 0.6 K/mm3 (0.1-1.0); Neutrophils # 4.4 K/mm3 (1.8-7.8); Neutrophils % 72.3 % (37.0-80.0); Platelet Count 266 K/mm3 (142-424); Red Blood Count 4.68 M/mm3 (4.60-6.20); Red Cell Distribution Width 11.9 % (11.5-17.5); White Blood Count 6.1 K/mm3 (4.8-10.8)
[2024-07-01 19:27] LABS: Chloride 98 mmol/L (98-107)
[2024-07-01 19:28] LABS: Albumin Level 4.5 g/dl (3.5-5.0); Potassium 3.9 mmoL/L (3.5-5.1); Sodium 132 mmol/L (136-145)
[2024-07-01 19:30] LABS: Alanine Aminotransferase 54 U/L (12-78); Blood Urea Nitrogen 9 mg/dl (9-20); Creatinine Clearance Estimated 102 mL/min (50-200); Estimated Glomerular Filt Rate 99 ml/min (>60); GFR (African American) 120 ML/MIN (>60)
[2024-07-01 19:31] LABS: Alkaline Phosphatase 75 U/L (38-126); Anion Gap 11.9 mEq/L (5-15); Aspartate Amino Transferase 76 U/L (17-59); Bilirubin,Total 0.3 mg/dl (0.2-1.3); Calcium 8.9 mg/dl (8.4-10.2); Carbon Dioxide 26 mmol/L (22.0-30.0); Globulin 2.2 g/dL (1.3-3.2); Glucose 167 mg/dl (74-100); Total Protein,Serum 6.7 g/dl (6.3-8.2)
[2024-07-01 19:58] LABS: Influenza A, PCR Detected (NotDetected)
[2024-07-01 21:38] LABS: Hepatitis C Ab Qual. W/ RFX NEGATIVE (Negative)
[2024-07-01 23:01] LABS: HIV Combo NEGATIVE (Negative)
== END 2024-07-01 21:13 | disposition home or self-care (01) ==
PROVIDERS: Physician Assistant; Emergency Provider Student in an Organized Health Care Education/Training Program; PCP Internal Medicine Adolescent Medicine
DX: J11.1 Influenza due to unidentified influenza virus with other respiratory manifestations (principal); R50.9 Fever, unspecified; R05.9 Cough, unspecified
CPT/HCPCS: 71046; 80053; 85025; 86803; 87389; 87636; 96360; 96374; 99283; J1885; J7120